=== PATIENT | female | born 1980 ===

== ENCOUNTER 2017-04-13 16:31 | Emergency (ER) | payer MEDICAID ==
[2017-04-13 17:21] VITALS: BP 137/87; PULSE 77; RESP 20; TEMP 98.3; O2SAT 100
[2017-04-13] MEDS ORDERED: Sodium Chloride 0.9% 1,000 ML IV STA (18:05)
--- NOTE | 2017-04-13 18:09 | ED PDOC ---
HPI: Abdomen Time Seen by Provider: 04/13/17 17:38 Chief Complaint (Nursing): Abdominal Pain Chief Complaint (Provider): Abdominal pain History Per: Patient History/Exam Limitations: no limitations Onset/Duration Of Symptoms: Days (5) Additional Complaint(s): Pt reports nausea, vomiting and abdominal pain X 5 days, associated with lightheadedness. Pain radiates to L lower back. Denies fever, CP, SOB, constipation, diarrhea, dysuria, hematuria, vaginal bleeding, vaginal discharge. Past Medical History Reviewed: Nursing Documentation, Vital Signs Vital Signs: Last Vital Signs Temp 98.3 F 04/13/17 17:15 Pulse 77 04/13/17 17:15 Resp 20 04/13/17 17:15 BP 137/87 04/13/17 17:15 Pulse Ox 100 04/13/17 17:15 - Medical History PMH: No Chronic Diseases - Surgical History Surgical History: No Surg Hx - Family History Family History: States: Unknown Family Hx - Living Arrangements Living Arrangements: With Family - Social History Current smoker - smoking cessation education provided: No Alcohol: None - Allergies Allergies/Adverse Reactions: Allergies Allergy/AdvReac Type Severity Reaction Status Date / Time No Known Allergies Allergy Verified 04/13/17 17:13 Review of Systems Constitutional: Negative for: Fever, Chills Cardiovascular: Negative for: Chest Pain, Palpitations Respiratory: Negative for: Cough, Shortness of Breath Gastrointestinal: Positive for: Nausea, Vomiting, Abdominal Pain. Negative for : Diarrhea, Hematemesis Genitourinary Female: Negative for: Dysuria, Hematuria, Vaginal Discharge, Vaginal Bleeding Musculoskeletal: Positive for: Back Pain. Negative for: Neck Pain Skin: Negative for: Rash, Lesions Neurological: Positive for: Dizziness. Negative for: Weakness, Numbness, Altered Mental Status, Headache Physical Exam - Reviewed Nursing Documentation Reviewed: Yes Vital Signs Reviewed: Yes - Physical Exam Appears: Positive for: Well, No Acute Distress Skin: Positive for: Normal Color, Warm, Dry Eye Exam: Positive for: Normal appearance, EOMI, PERRL Cardiovascular/Chest: Positive for: Regular Rate, Rhythm Respiratory: Positive for: Normal Breath Sounds. Negative for: Rales, Rhonchi, Wheezing Gastrointestinal/Abdominal: Positive for: Bowel Sounds, Soft, Tenderness ( Epigastric, LLQ). Negative for: Mass, Distended, Guarding, Rebound Back: Positive for: Normal Inspection. Negative for: L CVA Tenderness, R CVA Tenderness Extremity: Positive for: Normal ROM Neurologic/Psych: Positive for: Alert, Oriented - ECG O2 Sat by Pulse Oximetry: 100 Medical Decision Making Medical Decision Makin yo female with epigastric/LLQ pain, nausea and vomiting. - labs - CT abd/pelvis - IVF - Zofran - Morphine Disposition - Disposition
[2017-04-13 18:51] LABS: SQUAMOUS EPITHIAL < 1 /hpf (0-5); URINE BILIRUBIN NEGATIVE (NEGATIVE); URINE BLOOD SMALL (NEGATIVE); URINE CLARITY CLEAR (Clear); URINE COLOR YELLOW (YELLOW); URINE GLUCOSE (UA) NEG (Normal); URINE LEUKOCYTE ESTERASE NEG Leu/uL (Negative); URINE NITRATE NEGATIVE (NEGATIVE); URINE PROTEIN NEGATIVE (NEGATIVE); URINE UROBILINOGEN 0.2-1.0 mg/dL (0.2-1.0)
[2017-04-13 18:55] LABS: BASO % 0.3 % (0.0-2.0); EOS # 0.1 K/uL (0.0-0.7); EOS % 1.2 % (0.0-4.0); HEMOGLOBIN 12.7 g/dL (12.0-16.0); LYMPH # 2.4 K/uL (1.0-4.3); LYMPH % 26.5 % (20.0-40.0); MEAN CELL VOLUME 90.7 fl (81.0-99.0); MEAN CORPUSCULAR HEMOGLOBIN 30.6 pg (27.0-31.0); MEAN CORPUSCULAR HGB CONC 33.7 g/dL (33.0-37.0); MEAN PLATELET VOLUME 8.1 fl (7.2-11.7); MONO # 0.5 K/uL (0.0-0.8); MONO % 5.9 % (0.0-10.0); NEUT % 66.1 % (50.0-75.0); NRBC % 0.1 % (0.0-0.0); RBC 4.13 Mil/uL (3.80-5.20)
[2017-04-13 19:11] LABS: URINE BACTERIA RARE (<OCC)
[2017-04-13 19:15] LABS: CALCIUM 9.3 mg/dL (8.4-10.2); GFR AFRICAN-AMERICAN > 60; GFR NON-AFRICAN AMERICAN > 60; LIPASE 48 U/L (23-300)
[2017-04-13 19:16] LABS: ALB/GLOB RATIO 1.4 (1.0-2.1); ALBUMIN 4.6 g/dL (3.5-5.0); ALT/SGPT 9 U/L (9-52); AST/SGOT 39 U/L (14-36); BLOOD UREA NITROGEN 15 mg/dl (7-17)
[2017-04-13] MEDS ORDERED: Iohexol 300 100 ML IJ ONE (19:48)
[2017-04-13] MEDS ORDERED: Sodium Chloride 0.9% 50 ML IV ONE (19:49)
--- NOTE | 2017-04-13 19:51 | ED PDOC ---
- Laboratory Results Result Diagrams: 04/13/17 18:52 04/13/17 18:52 - ECG O2 Sat by Pulse Oximetry: 100 Medical Decision Making Medical Decision Making: Time: 07:00 Patient is signed over to me by Dr. Farr pending labs and reevaluation. Time: 21:31 CT Abd/Pelvis FINDINGS: Limitations: Motion artifact - mild. Lower thorax: Probable small hiatal hernia. ABDOMEN: Liver: Unremarkable. No mass. Gallbladder and bile ducts: No calcified stones. No ductal dilation. Pancreas: No ductal dilation. No mass. Spleen: No splenomegaly. Adrenals: No mass. Kidneys and ureters: No mass. No hydronephrosis. Stomach and bowel: No definite mural thickening. No obstruction. Appendix: Normal caliber. No inflammation. PELVIS: Bladder: Unremarkable. Reproductive: 4.9 x 3.0 x 3.2 cm hypodense lesion within RIGHT ovary. ABDOMEN and PELVIS: Intraperitoneal space: No significant fluid collection. No free air. Bones/joints: No acute fracture. Soft tissues: Unremarkable. Vasculature: Unremarkable. No aneurysm. Lymph nodes: No pathologically enlarged lymph nodes. IMPRESSION: 1. RIGHT ovarian cyst. See ultrasound report. 2. Incidental/non-acute findings are described above. Time: 22:00 -- Patient showed improvements in symptoms --Stable for discharge Clinical Impression: Ovarian cyst, abdominal pain, vertigo --Patient will follow up with private speech language assistant. Scribe Attestation: Documented by Felipa Montoya acting as a scribe for Suman Briceño MD. MD Nagy Attestation: All medical record entries made by the Scribe were at my direction and personally dictated by me. I have reviewed the chart and agree that the record accurately reflects my personal performance of the history, physical exam, medical decision making, and the department course for this patient. I have also personally directed, reviewed, and agree with the discharge instructions and disposition. Disposition - Clinical Impression Clinical Impression: Abdominal pain, Ovarian cyst, Vertigo - POA Present On Arrival: None - Disposition [facility] Disposition: Routine/Home Disposition Time: 22:00 Condition: STABLE Prescriptions: Meclizine [Antivert] 25 mg PO Q6 PRN #12 tab PRN Reason: Dizziness, Nausea Naproxen [Naprosyn] 500 mg PO Q12 #14 tab Instructions: Ovarian Cyst (ED), Vertigo (ED), Abdominal Pain (ED) Forms: [facility] (Croatian), [facility] School/Work Excuse Print Language: MALTESE
--- NOTE | 2017-04-13 21:31 | CT ---
EXAM: CT Abdomen and Pelvis With Intravenous Contrast CLINICAL HISTORY: 36 years old, female; Pain; Abdominal pain; Localized; Left lower quadrant (llq); Additional info: Llq pain. Sent phy. Doc. TECHNIQUE: Axial computed tomography images of the abdomen and pelvis with intravenous contrast. All CT scans at this facility use one or more dose reduction techniques, viz.: automated exposure control; ma/kV adjustment per patient size (including targeted exams where dose is matched to indication; i.e. head); or iterative reconstruction technique. Coronal and sagittal reformatted images were created and reviewed. CONTRAST: 95 mL of [id number] administered intravenously. COMPARISON: PELVIS/TRANSVAG US 2017-04-13 19:29 FINDINGS: Limitations: Motion artifact - mild. Lower thorax: Probable small hiatal hernia. ABDOMEN: Liver: Unremarkable. No mass. Gallbladder and bile ducts: No calcified stones. No ductal dilation. Pancreas: No ductal dilation. No mass. Spleen: No splenomegaly. Adrenals: No mass. Kidneys and ureters: No mass. No hydronephrosis. Stomach and bowel: No definite mural thickening. No obstruction. Appendix: Normal caliber. No inflammation. PELVIS: Bladder: Unremarkable. Reproductive: 4.9 x 3.0 x 3.2 cm hypodense lesion within RIGHT ovary. ABDOMEN and PELVIS: Intraperitoneal space: No significant fluid collection. No free air. Bones/joints: No acute fracture. Soft tissues: Unremarkable. Vasculature: Unremarkable. No aneurysm. Lymph nodes: No pathologically enlarged lymph nodes. IMPRESSION: 1. RIGHT ovarian cyst. See ultrasound report. 2. Incidental/non-acute findings are described above.
--- NOTE | 2017-04-14 08:46 | US ---
HISTORY: LLQ pain COMPARISON: None available. TECHNIQUE: Grayscale, color Doppler and spectral evaluation of the pelvis performed transabdominally and transvaginally FINDINGS: UTERUS: Measures 8.5 x 5.3 x 3.7 cm. Anteverted. Normal in size and appearance. No fibroid or other mass lesion seen. ENDOMETRIUM: Measures 12 mm in diameter. Unremarkable. CERVIX: No cervical abnormality identified. RIGHT OVARY: Measures 5.0 x 3.1 x 3.2 cm. Cyst measuring 4.3 x 2.8 x 3.1 cm. No solid mass. Normal flow. LEFT OVARY: Measures 2.2 x 2.0 x 1.1 cm. No solid mass. Normal flow. FREE FLUID: No significant free fluid noted. OTHER FINDINGS: None. IMPRESSION: Bilateral symmetrical ovarian flow. Right ovarian cyst measuring up to 4.3 cm.
== END 2017-04-13 22:13 | disposition home or self-care (01) ==
LOC: H.ER 16:31
DX: N83.201 Unspecified ovarian cyst, right side (principal); R42 Dizziness and giddiness
CPT/HCPCS: 74177; 76830; 76856; 80053; 81003; 81025; 83690; 85025; 96374; 96375; 99282; J2270; J2405; J7040; Q9967

== ENCOUNTER 2018-03-04 13:35 | Emergency (ER) | payer MEDICAID ==
[2018-03-04 14:21] VITALS: O2SAT 100
[2018-03-04] MEDS ORDERED: Sodium Chloride 0.9% 1,000 ML IV STA (18:58)
[2018-03-04] MEDS ORDERED: Morphine 4 MG/ML VIAL IV ONE (18:58)
[2018-03-04 19:34] LABS: BASO % 0.5 % (0.0-2.0); EOS # 0.1 K/uL (0.0-0.7); EOS % 1.3 % (0.0-4.0); HEMOGLOBIN 9.3 g/dL (12.0-16.0); LYMPH # 1.3 K/uL (1.0-4.3); MEAN CELL VOLUME 92.1 fl (81.0-99.0); MEAN CORPUSCULAR HEMOGLOBIN 31.3 pg (27.0-31.0); MEAN PLATELET VOLUME 8.1 fl (7.2-11.7); MONO # 0.5 K/uL (0.0-0.8); MONO % 5.3 % (0.0-10.0); NEUT # 7.8 K/uL (1.8-7.0); NEUT % 79.9 % (50.0-75.0); RBC 2.97 Mil/uL (3.80-5.20); RED CELL DISTRIBUTION WIDTH 13.3 % (11.5-14.5); WHITE BLOOD COUNT 9.8 K/uL (4.8-10.8)
--- NOTE | 2018-03-04 19:34 | ED PDOC ---
- ECG O2 Sat by Pulse Oximetry: 100 Medical Decision Making Medical Decision Makin:00 Patient is being signed out to me by Raven Segundo MD pending labs, ultrasound, and reevaluation. Scribe Attestation: Documented byElaine Bruce, acting as a scribe for Suman Briceño MD. Provider Scribe Attestation: All medical record entries made by the Scribe were at my direction and personally dictated by me. I have reviewed the chart and agree that the record accurately reflects my personal performance of the history, physical exam, medical decision making, and the department course for this patient. I have also personally directed, reviewed, and agree with the discharge instructions and disposition. Disposition - Disposition Forms: [employer] (Beninese)
[2018-03-04] MEDS ORDERED: Morphine 4 MG/ML VIAL ONE (19:36)
--- NOTE | 2018-03-04 19:47 | ED PDOC ---
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 Patient reports that 10x days ago she started having a miscarriage. Last known menstrual period was on 01/15/2018. Patient reports that she is still bleeding heavily (4x pads per day), and has passed clots. Patient reports that after she was see by her PMD on 02/20/2018, he advised her to go on pelvic rest. Patient has an upcoming appointment with her doctor on 03/11/2018. Patient reports having a tactile fever last night. PMD: Reynaldo Jenkins MD Abnormal Vaginal Bleeding: Yes Last Menstral Period: 01/15/2018 Past Medical History Reviewed: Historical Data, Nursing Documentation, Vital Signs Vital Signs: Last Vital Signs Temp 98.4 F 03/04/18 14:17 Pulse 96 H 03/04/18 14:17 Resp 16 03/04/18 14:17 BP 129/77 03/04/18 14:17 Pulse Ox 100 03/04/18 19:34 AMPARO Report Viewed: Yes - Medical History PMH: No Chronic Diseases - Surgical History Surgical History: (2x) - Family History Family History: States: No Known Family Hx - Social History Current smoker - smoking cessation education provided: No Alcohol: Occasional Drugs: Denies - Home Medications Home Medications: Ambulatory Orders Medication Instructions Recorded Meclizine [Antivert] 25 mg PO Q6 PRN #12 tab 04/13/17 Naproxen [Naprosyn] 500 mg PO Q12 #14 tab 04/13/17 Nitrofurantoin Macrocrystals 100 mg PO BID #14 cap 03/04/18 [Macrobid] RX: Ferrous Sulfate 325 mg PO DAILY #30 tablet 03/06/18 - Allergies Allergies/Adverse Reactions: Allergies Allergy/AdvReac Type Severity Reaction Status Date / Time No Known Allergies Allergy Verified 04/13/17 17:13 Review of Systems ROS Statement: Except As Marked, All Systems Reviewed And Found Negative Constitutional: Positive for: Fever Genitourinary Female: Positive for: Vaginal Bleeding (heavy for 10x days with clots) Physical Exam - Reviewed Nursing Documentation Reviewed: Yes Vital Signs Reviewed: Yes - Physical Exam Appears: Positive for: Non-toxic, In Acute Distress (mild painful distress) Head Exam: Positive for: ATRAUMATIC, NORMOCEPHALIC Skin: Positive for: Normal Color, Warm, Dry Cardiovascular/Chest: Positive for: Regular Rate, Rhythm. Negative for: Murmur Respiratory: Positive for: Normal Breath Sounds. Negative for: Respiratory Distress Gastrointestinal/Abdominal: Positive for: Normal Exam, Soft. 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 Negative for: No Masses, Tender W/Cervical Motion Neurologic/Psych: Positive for: Alert, Oriented (3x) - Laboratory Results Result Diagrams: 03/04/18 19:30 03/04/18 19:30 - ECG O2 Sat by Pulse Oximetry: 100 (RA) Pulse Ox Interpretation: Normal Medical Decision Making Medical Decision Makin:50 Initial impression: 37 year old female with abnormal vaginal bleeding rule out vs retained products of conception Initial plan: * US transvaginal * type and screen * beta-hcg * CBc with differential * urine c&s * urinalysis * morphine 2 mg IV * IV NS 1,000 ml IV 999 mls/hr * reevaluation 19:00 Patient is being signed out by me to Suman Briceño MD pending ultrasound, labs, and reevaluation Scribe Attestation: Documented Karyna Bruce, acting as a scribe for Raven Segundo MD. Provider Scribe Attestation: All medical record entries made by the Scribe were at my direction and personally dictated by me. I have reviewed the chart and agree that the record accurately reflects my personal performance of the history, physical exam, medical decision making, and the department course for this patient. I have also personally directed, reviewed, and agree with the discharge instructions and disposition. Disposition - Clinical Impression Clinical Impression: Threatened , UTI (urinary tract infection) - Patient ED Disposition Is Patient to be Admitted: Transfer of Care - Disposition [facility] Disposition: Transfer of Care Disposition Time: 19:00 Condition: STABLE Prescriptions: Nitrofurantoin Macrocrystals [Macrobid] 100 mg PO BID #14 cap Instructions: Urinary Tract Infections in Adults, Threatened Miscarriage, Bleeding With Forms: [facility] (Arabic) Print Language: SYRIAC Patient Signed Over To: Suman Briceño
[2018-03-04 19:49] LABS: ALB/GLOB RATIO 1.4 (1.0-2.1); ALT/SGPT 30 U/L (9-52); AST/SGOT 19 U/L (14-36); BLOOD UREA NITROGEN 12 mg/dl (7-17); CALCIUM 9.1 mg/dL (8.4-10.2); GFR NON-AFRICAN AMERICAN > 60
[2018-03-04 20:17] LABS: SQUAMOUS EPITHIAL 3 /hpf (0-5); URINE BACTERIA RARE (<OCC); URINE BILIRUBIN NEGATIVE (NEGATIVE); URINE BLOOD LARGE (NEGATIVE); URINE CLARITY SLIGHTY-CLOUDY (Clear); URINE COLOR YELLOW (YELLOW); URINE GLUCOSE (UA) NEG (NEGATIVE); URINE LEUKOCYTE ESTERASE SMALL Leu/uL (Negative); URINE PROTEIN 30 mg/dL (NEGATIVE); URINE UROBILINOGEN 0.2-1.0 mg/dL (0.2-1.0)
--- NOTE | 2018-03-04 21:41 | ED PDOC ---
- Laboratory Results Result Diagrams: 03/04/18 19:30 03/04/18 19:30 - ECG O2 Sat by Pulse Oximetry: 100 (RA) Medical Decision Making Medical Decision Makin:00 Patient is being signed out to me by Raven Segundo MD pending labs, ultr asound, and reevaluation. 20:47 US transvaginal read and reviewed by radiologist Findings Uterus Measures 9.4 x 3.9 x 5.2 cm. Normal in size and appearance. No fibroid or other mass lesion seen. Endometrium Measures 7 mm in diameter. Unremarkable. Cervix Inhomogeneous collection in the lower uterine segment/cervix area measures 4.4 x 2.1 x 2.9 cm. Right ovary Measures 2.7 x 1.7 x 1.9 cm. No solid mass. Normal flow. Follicles. Left ovary Measures 2.9 x 1.7 x 2.3 cm. No solid mass. Normal flow. Free fluid No significant free fluid noted. Other Findings None. Impression 1. Inhomogeneous collection in the lower uterine segment/cervix area, most compatible with hemorrhage. Consider short term follow up. 2. Right ovarian follicles. 22:00 Upon reevaluation, patient reports an improvement in symptoms. Labs reviewed show no clinically sig abnormality however urinalysis is indicative of urinary tract infection. Given patient's low beta-HCG, it is unclear whether or not that level has fallen adequately from 02/22/2018 (at [facility]) where she was diagnosed with miscarriage. Patient is advised to return to ED in 2x days or to follow up outpatient with her doctor to perform a repeat beta-HCG. Patient is stable for discharge home, diagnosis is threatened miscarriage. Return precautions provided. Scribe Attestation: Documented Karyna Bruce, acting as a scribe for Suman Briceño MD. Provider Scribe Attestation: All medical record entries made by the Scribe were at my direction and personally dictated by me. I have reviewed the chart and agree that the record accurately reflects my personal performance of the history, physical exam, medical decision making, and the department course for this patient. I have also personally directed, reviewed, and agree with the discharge instructions and disposition. Disposition - Clinical Impression Clinical Impression: Threatened , UTI (urinary tract infection) - POA Present On Arrival: None - Disposition [facility]] Disposition: Routine/Home Disposition Time: 22:00 Condition: STABLE Prescriptions: Nitrofurantoin Macrocrystals [Macrobid] 100 mg PO BID #14 cap Instructions: Urinary Tract Infections in Adults, Threatened Miscarriage, Bleeding With Forms: [facility] (East Timorese) Print Language: INDONESIAN
[2018-03-04 22:56] VITALS: BP 122/75; PULSE 75; RESP 17; TEMP 98.3
--- NOTE | 2018-03-05 13:05 | US ---
Date of service: 03/04/2018 HISTORY: Status post miscarriage end of January presenting with pain. Bleeding since 02/22/2018. No D&C performed following miscarriage. COMPARISON: 04/13/2017 CT abdomen and pelvis. TECHNIQUE: Transvaginal only. Real -time technique with 2D, duplex and color Doppler FINDINGS: UTERUS: Measures 3.9 x 9.4 cm. Abnormal she collection lower uterine segment extending into the cervix. In this clinical setting this likely represents hemorrhage/hematoma. Retained products of conception should be considered and correlated with beta HCG. ENDOMETRIUM: Measures 7.0 mm in diameter. Unremarkable as visualized. Endometrial echo complex distally is obscured by the hemorrhagic process/mass. CERVIX: Hemorrhagic process/mass from the lower uterine segment to the cervix measures 2.1 x 4.8 cm. RIGHT OVARY: Measures 1.7 x 1.9 x 2.7 cm. No solid mass. Normal flow. Multiple subcentimeter follicles. LEFT OVARY: Measures 1.7 x 2.3 x 2.9 cm. No solid mass. Normal flow. Multiple subcentimeter follicles. FREE FLUID: No significant free fluid noted. OTHER FINDINGS: None. IMPRESSION: Abnormal masslike collection occupying lower uterine segment and cervix. Hemorrhage/hematoma should be considered. Retained products of conception should also be considered and therefore correlation with beta HCG. Follow-up to resolution. Concordant findings (preliminary report) provided by [facility].
== END 2018-03-04 21:49 | disposition home or self-care (01) ==
LOC: H.ER 13:35
DX: O20.0 Threatened abortion (principal); O03.88 Urinary tract infection following complete or unspecified spontaneous abortion
CPT/HCPCS: 76830; 80053; 81003; 81025; 84702; 85025; 86850; 86900; 87086; 87181; 96360; 99284; J2270; J7030

== ENCOUNTER 2018-03-06 11:18 | Emergency (ER) | payer MEDICAID ==
[2018-03-06 11:31] VITALS: RESP 18; O2SAT 100
--- NOTE | 2018-03-06 12:47 | ED PDOC ---
HPI: Female Pain Time Seen by Provider: 03/06/18 11:39 Chief Complaint (Nursing): Female Genitourinary Chief Complaint (Provider): Vaginal Bleeding History Per: Patient History/Exam Limitations: no limitations Onset/Duration Of Symptoms: Days (x2) Current Symptoms Are (Timing): Still Present Additional Complaint(s): 37 year old female presents to the ED with vaginal bleeding at home since last night. Patient reports she had some blood clots this morning. Afterwards, she passed, what she thinks, is products of conception. Patient believes she had a miscarriage. She is also reporting lower abdominal cramping and lower back pain. Patient is A2. Patient is supposed to be 5 weeks . Patient presented to this ED and had an US done for the . PMD: Dr. Jenkins Drawing Box Tender: none Past Medical History Reviewed: Historical Data, Nursing Documentation, Vital Signs Vital Signs: Last Vital Signs Temp 98.3 F 03/06/18 11:28 Pulse 78 03/06/18 11:28 Resp 18 03/06/18 11:28 BP 132/87 03/06/18 11:28 Pulse Ox 100 03/06/18 11:28 - Medical History PMH: No Chronic Diseases - Surgical History Surgical History: (2x) - Family History Family History: States: Unknown Family Hx - Social History Current smoker - smoking cessation education provided: No Alcohol: None Drugs: Denies - Home Medications Home Medications: Ambulatory Orders Medication Instructions Recorded Meclizine [Antivert] 25 mg PO Q6 PRN #12 tab 04/13/17 Naproxen [Naprosyn] 500 mg PO Q12 #14 tab 04/13/17 Nitrofurantoin Macrocrystals 100 mg PO BID #14 cap 03/04/18 [Macrobid] - Allergies Allergies/Adverse Reactions: Allergies Allergy/AdvReac Type Severity Reaction Status Date / Time No Known Allergies Allergy Verified 04/13/17 17:13 Review of Systems ROS Statement: Except As Marked, All Systems Reviewed And Found Negative Gastrointestinal: Positive for: Abdominal Pain (lower abdominal cramping) Genitourinary Female: Positive for: Vaginal Bleeding Musculoskeletal: Positive for: Back Pain (lower back pain) Physical Exam - Reviewed Nursing Documentation Reviewed: Yes Vital Signs Reviewed: Yes - Physical Exam Appears: Positive for: Non-toxic, No Acute Distress Head Exam: Positive for: ATRAUMATIC, NORMOCEPHALIC Skin: Positive for: Normal Color, Warm, Dry Eye Exam: Positive for: Normal appearance Neck: Positive for: Normal, Painless ROM Cardiovascular/Chest: Positive for: Regular Rate, Rhythm Respiratory: Positive for: Normal Breath Sounds. Negative for: Wheezing, Respiratory Distress Gastrointestinal/Abdominal: Positive for: Tenderness (suprapubic tenderness) Extremity: Positive for: Normal ROM Neurologic/Psych: Positive for: Alert, Oriented - Laboratory Results Result Diagrams: 03/06/18 13:25 - ECG O2 Sat by Pulse Oximetry: 100 (RA) Pulse Ox Interpretation: Normal Medical Decision Making Medical Decision Making: Initial Impression: Vaginal bleeding, abdominal pain in , and sponta neous miscarriage Differential includes incomplete miscarriage and retention of products of conception. Initial Plan: --BMP -- serum stat --ED urine --ED urine dipstick --CBC --Toradol 30mg IM --OB transvaginal US -Patient blood type is A positive OB Transvaginal US 03/04/2018 Findings Uterus Measures 9.4 x 3.9 x 5.2 cm. Normal in size and appearance. No fibroid or other mass lesion seen. Endometrium Measures 7 mm in diameter. Unremarkable. Cervix Inhomogeneous collection in the lower uterine segment/cervix area measures 4.4 x 2.1 x 2.9 cm. Right ovary Measures 2.7 x 1.7 x 1.9 cm. No solid mass. Normal flow. Follicles. Left ovary Measures 2.9 x 1.7 x 2.3 cm. No solid mass. Normal flow. Free fluid No significant free fluid noted. Other Findings None. Impression 1. Inhomogeneous collection in the lower uterine segment/cervix area, most compatible with hemorrhage. Consider short term follow up. 2. Right ovarian follicles. Scribe Attestation: Documented by Yousuf Turk acting as a scribe for Jian Greco MD. Provider Scribe Attestation: All medical record entries made by the Scribe were at my direction and persona lly dictated by me. I have reviewed the chart and agree that the record accurately reflects my personal performance of the history, physical exam, medical decision making, and the department course for this patient. I have also personally directed, reviewed, and agree with the discharge instructions and disposition. Disposition - Clinical Impression Clinical Impression: Vaginal bleeding, Spontaneous - Patient ED Disposition Is Patient to be Admitted: No Doctor Will See Patient In The: Office Counseled Patient/Family Regarding: Studies Performed, Diagnosis, Need For Followup - Disposition Referrals: [facility] [Outside] Disposition Time: 14:16 Condition: GOOD Additional Instructions: Follow up with your PCP in 1 week. Instructions: Miscarriage Print Language: K[place]
[2018-03-06 13:42] LABS: BASO % 0.2 % (0.0-2.0); EOS # 0.1 K/uL (0.0-0.7); EOS % 2.2 % (0.0-4.0); HEMOGLOBIN 9.8 g/dL (12.0-16.0); LYMPH # 1.5 K/uL (1.0-4.3); LYMPH % 24.4 % (20.0-40.0); MEAN CELL VOLUME 95.2 fl (81.0-99.0); MEAN CORPUSCULAR HEMOGLOBIN 30.9 pg (27.0-31.0); MEAN CORPUSCULAR HGB CONC 32.4 g/dL (33.0-37.0); MEAN PLATELET VOLUME 8.4 fl (7.2-11.7); MONO # 0.4 K/uL (0.0-0.8); MONO % 6.8 % (0.0-10.0); NEUT % 66.4 % (50.0-75.0); NRBC % 0.2 % (0.0-0.0); RBC 3.18 Mil/uL (3.80-5.20); RED CELL DISTRIBUTION WIDTH 13.2 % (11.5-14.5)
[2018-03-06 15:10] VITALS: BP 119/77; PULSE 68; TEMP 98
--- NOTE | 2018-03-06 15:23 | US ---
Date of service: 03/06/2018 PROCEDURE: HISTORY: vaginal bleeding, passed spontaneous COMPARISON: TECHNIQUE: FINDINGS: The uterus measures 7.3 x 4.1 centimeters. The endometrium measures 6 millimeters. There is no intrauterine . The ovaries have a normal sonographic appearance. There is no free fluid the pelvis. IMPRESSION: No intrauterine . Ectopic not excluded.
== END 2018-03-06 15:00 | disposition home or self-care (01) ==
LOC: H.ER 11:18
DX: O20.9 Hemorrhage in early pregnancy, unspecified (principal); O03.9 Complete or unspecified spontaneous abortion without complication; Z3A.01 Less than 8 weeks gestation of pregnancy
CPT/HCPCS: 76817; 81025; 84702; 85025; 96372; 99284; J1885